=== PATIENT | female | born 1960 | race Caucasian/White ===

== ENCOUNTER → 2016-07-18 | Outpatient (CLI) | payer OTHER ==
[~2016-07-18] MED LIST: HYDC25 PO; LISI40TA PO; METO50TA7 PO
== END | disposition home or self-care (01) ==
LOC: C.PAPS 14:05
PROVIDERS: ATTEND Obstetrics & Gynecology
DX: C55 Malignant neoplasm of uterus, part unspecified (principal); R87.616 Satisfactory cervical smear but lacking transformation zone

== ENCOUNTER → 2016-09-27 | Outpatient (CLI) | payer OTHER ==
[2016-09-27 12:53] LABS: ALT/SGPT 28 U/L (12-78); AST/SGOT 20 U/L (15-37); BLOOD UREA NITROGEN 13 mg/dl (7-18); BUN/CREATININE RATIO 16.2 (10-20); CALCIUM 8.9 mg/dl (8.5-10.1); CARBON DIOXIDE 30 mmol/L (21-32); CHLORIDE 106 mmol/L (98-107); CREATININE 0.82 mg/dl (0.60-1.20); GLUCOSE 121 mg/dl (70-99); POTASSIUM 3.8 mmol/L (3.5-5.1); SODIUM 141 mmol/L (136-145); TRIGLYCERIDES 132 mg/dl (0-150); VERY LOW DENSITY LIPOPROT CALC 26 mg/dl
[2016-09-27 12:54] LABS: ALB/GLOB RATIO 0.9 (0.9-2); ALKALINE PHOSPHATASE 59 U/L (45-117); CHOLESTEROL 130 mg/dl (0-200); CHOLESTEROL/HDL RATIO 3.5; HDL CHOLESTEROL 37 mg/dl; LDL CHOLESTEROL CALCULATED 67 mg/dl
== END | disposition home or self-care (01) ==
LOC: C.LABPVFM 07:40
PROVIDERS: ATTEND Family Medicine
DX: E78.1 Pure hyperglyceridemia (principal); I10 Essential (primary) hypertension; R73.09 Other abnormal glucose

== ENCOUNTER → 2016-11-21 | Outpatient (CLI) | payer OTHER | END | disposition home or self-care (01) | LOC: C.PAPS 12:03 | PROVIDERS: ATTEND Obstetrics & Gynecology | DX: Z12.4 Encounter for screening for malignant neoplasm of cervix (principal); C55 Malignant neoplasm of uterus, part unspecified ==

== ENCOUNTER → 2016-12-26 | Outpatient (CLI) | payer OTHER ==
--- NOTE | 2016-12-26 12:23 | MAMMOGRAPHY REPORT ---
BILATERAL DIGITAL SCREENING MAMMOGRAM WITH CAD: 12/26/2016 CLINICAL HISTORY: Routine screening. Patient has no complaints. TECHNIQUE: Current study was also evaluated with a Computer Aided Detection (CAD) system. Bilateral CC and MLO views were obtained. COMPARISON: Comparison is made to exams dated: 12/21/2015 mammogram, 12/15/2014 mammogram, 12/09/2013 ma mmogram, 12/03/2012 mammogram, 11/28/2011 mammogram, and 11/22/2010 mammogram - [facility]. BREAST COMPOSITION: The tissue of both breasts is almost entirely fatty. FINDINGS: There is a new 8 mm focal asymmetry with associated calcification in the right upper inner quadrant, for which spot compression tomosynthesis views, spot magnification views, and possible jayde ast ultrasound are recommended for further evaluation. The remainder of both breasts are stable compared to prior exams, without suspicious masses, calcific ations, or areas of architectural distortion noted. Other bilateral benign-appearing calcifications are noted, including grouped calcifications in the left lower inner quadrant anteriorly which are con sistent with benign dermal calcifications. IMPRESSION: ACR BI-RADS CATEGORY 0: INCOMPLETE EVALUATION: NEED ADDITIONAL IMAGING EVALUATION Focal asymmetry and associated calcification in the right upper inner quadrant, for which additional imaging evaluation is recommended. The patient will be called to schedule an appointment. Approximately 10% of breast cancers are not detected with mammography. A negative mammographic report should not delay biopsy if a clinically suggestive mass is present. Eugenia Thurman M.D. ah/:12/26/2016 07:51:15 Nurse Obgyn: Carolee LIEBERMAN(Tello)(M), [facility] letter sent: Addl Imaging 0 BI-RADS Code: ACR BI-RADS Category 0: Incomplete Evaluation: Need Additional Imaging Evaluation
== END | disposition home or self-care (01) ==
LOC: C.MAMM 07:32
PROVIDERS: ATTEND Family Medicine
DX: Z12.31 Encounter for screening mammogram for malignant neoplasm of breast (principal)

== ENCOUNTER → 2017-01-02 | Outpatient (CLI) | payer OTHER ==
--- NOTE | 2017-01-02 09:49 | Discharge Instructions ---
Discharge Instructions Procedure Procedure Date: Jan 02, 2017. Reason for visit: Rt Calcs & Asymmetry. Discharge Discharge Date: Jan 02, 2017. Discharge Diagnosis: status post breast biopsy Instructions Activity Recommendations: Additional Limitations (see below) Return to School/Work: no limitations Recommended Home Diet: No Limitations Provider Instructions: ACTIVITY RECOMMENDATIONS: * No lifting, pushing, pulling or exercising the affected side for three days. RETURN TO SCHOOL/WORK: * You may return to work/school after the procedure, but do not perform any strenuous activities for 24 to 48 hours. MEDICATIONS: * Tylenol (two 325 mg) every four to six hours if needed for mild pain (if not allergic to Tylenol). DIET: * Resume previous diet. SPECIAL CARE INSTRUCTIONS: * Keep biopsy site dry for 24 hours. May shower after 24 hours, but do not soak (bathe) incision. * May remove Tegaderm (plastic patch) tomorrow AFTER showering. * Leave the steri-strips on for one week. Allow the steri-strips to fall off by themselves. If not off after one week, you may remove them. You may place a Bandaid crosswise over the strips, if desired. * Apply ice 10 minutes on and 10 minutes off as needed. * Wear a bra at bedtime to sleep more comfortably for 2-3 days. * Your referring physician should have the results after approximately 5 to 7 business days. * Call for unusual bleeding, fever, drainage, etc or if you have any questions call during normal business hours or after hours call Dr Thurman, . FOLLOW UP VISIT: Follow-up with Referring Physician as scheduled. Allergies Coded Allergies: Amlodipine (Verified Adverse Reaction, Mild, edema, 01/10/15) Eduardo Espinoza Recommendations: Call your doctor if: * Temperature above 101 degrees * Pain not relieved by pain medicine ordered * There is increased drainage or redness from any incision * You have any unanswered questions or concerns. Your Doctors Instructions noted above were prepared by provider Eugenia Thurman. Patient Signature Section: Patient Instructions Signature Page Barbara Jerry Patient (or Guardian) Signature/Date: I have read and understand the instructions given to me by my caregivers. Caregiver/RN/Doctor Signature/Date: The above-named patient and/or guardian has received patient instructions on this date. + Original Patient Signature Page (only) stays with chart. Please make copy for patient.
--- NOTE | 2017-01-02 15:18 | MAMMOGRAPHY REPORT ---
ULTRASOUND GUIDED BIOPSY RIGHT BREAST: 01/02/2017 CLINICAL HISTORY: Right 1:00 breast mass. PATIENT CONSENT: The procedure, risks and benefits were discussed with the patient and informed writt en consent was obtained. A timeout was performed immediately prior to the procedure. PROCEDURE DESCRIPTION: With ultrasound guidance, aseptic technique, and lidocaine as the local anesth etic (1% lidocaine to anesthetize the skin and 1% lidocaine with epinephrine to anesthetize the deepe r tissues), the mass of concern in the right 1:00 breast was sampled 4 times with a 14-gauge Achieve biopsy needle. Immediately thereafter, a metallic localizer clip was placed at the biopsy site. Dir ect pressure was applied to the site immediately post procedure and hemostasis was achieved. Postpro cedure unilateral mammograms including right CC and ML tomosynthesis images including C views were ob tained, which shows a new biopsy marker clip at the site of the biopsied mass in the right upper inne r quadrant with no significant postbiopsy hematoma noted. The patient tolerated the procedure withou t complication. She was given wound care instructions. The specimens were sent to pathology for anal ysis. COMPARISON: Comparison is made to exams dated: 01/02/2017 mammogram, 12/26/2016 mammogram, 12/21/2015 lizeth mogram, 12/15/2014 mammogram, 12/09/2013 mammogram, and 12/03/2012 mammogram - [facility]. IMPRESSION: ULTRASOUND GUIDED BIOPSY Ultrasound guided core needle biopsy of the right 1:00 breast mass, with clip placement. The patient will receive pathology results from her referring provider. Eugenia Thurman M.D. /:01/02/2017 09:58:55 Food Porter: Nena LIEBERMAN(R)(M), [facility]
--- NOTE | 2017-01-02 15:20 | MAMMOGRAPHY REPORT ---
UNILATERAL RIGHT DIGITAL DIAGNOSTIC MAMMOGRAM TOMOSYNTHESIS AND TARGETED RIGHT ULTRASOUND: 01/02/2017 CLINICAL HISTORY: 56 year-old woman called back from screening mammography for a new focal asymmetry with associated calcification in the upper inner quadrant of the right breast. TECHNIQUE: Spot magnification right CC, ML and spot compression tomosynthesis right CC and MLO views were obtained. COMPARISON: Comparison is made to exams dated: 12/26/2016 mammogram, 12/21/2015 mammogram, 12/15/2014 lizeth mogram, 12/09/2013 mammogram, 12/03/2012 mammogram, and 11/28/2011 mammogram - [facility]. BREAST COMPOSITION: The tissue of the right breast is almost entirely fatty. FINDINGS: There is persistence of a 5.7 x 3.7 x 5.4 mm focal asymmetry versus mass with single assoc iated punctate microcalcification in the upper inner middle one third of the right breast. The borde rs are indistinct and non-circumscribed. No associated architectural distortion. No other obvious m ass, asymmetry or microcalcifications are identified. Targeted ultrasound was performed in the upper inner quadrant of the right breast. In the 1:00 axis, 7 cm from the nipple, there is an ill-defined hypoechoic mass with echogenic halo measuring approxim ately 6.3 x 6.1 x 4.6 mm, located 5 mm deep to the dermis. This could represent benign fat necrosis, given the superficial location, but the patient denies any known trauma to her right breast. Theref ore, definitive characterization with tissue sampling is recommended to exclude malignancy. Postprocedure right CC and ML tomosynthesis images obtained after ultrasound guided core biopsy in th e right breast were included in this diagnostic jacket in PACS. Please refer to the ultrasound guide d core biopsy report which was performed on the same day for full detail. IMPRESSION: ACR BI-RADS CATEGORY 4B: INTERMEDIATE SUSPICION FOR MALIGNANCY, TARGETED ULTRASOUND ACR BI-RADS CATEGORY 4B: INTERMEDIATE SUSPICION FOR MALIGNANCY 1. Ultrasound guided core biopsy is recommended for a 6 mm non-circumscribed ill-defined hypoechoic mass with echogenic halo in the 1:00 right breast, 7 cm from the nipple, which correlates with a newl y visualized mammographic focal asymmetry. 2. Postprocedure right mammograms obtained after ultrasound guided core biopsy are described under t he ultrasound guided core biopsy report. These results and recommendations were discussed with the patient at the time of the exam. She sched uled the biopsy appointment for the same day. Approximately 10% of breast cancers are not detected with mammography. A negative mammographic report should not delay biopsy if a clinically suggestive mass is present. Daya Zuñiga M.D. ay/:01/02/2017 10:04:41 Literary Writer: Carolee Uriarte, [facility] letter sent: Abnormal 4/5 BI-RADS Code: ACR BI-RADS Category 4B: Intermediate Suspicion For Malignancy Ultrasound BI-RADS: ACR BI-RADS Category 4B: Intermediate Suspicion For Malignancy
== END | disposition home or self-care (01) ==
LOC: C.MAMM 08:54
PROVIDERS: ATTEND Family Medicine
DX: R92.0 Mammographic microcalcification found on diagnostic imaging of breast (principal); N64.89 Other specified disorders of breast

== ENCOUNTER → 2017-05-22 | Outpatient (CLI) | payer OTHER ==
[~2017-05-22] MED LIST changes: -METO50TA7 PO; +METO50TA8 PO
[2017-05-22 13:06] LABS: HEMOGLOBIN A1C 5.9 % (4.5-5.6)
[2017-05-22 14:55] LABS: ALBUMIN 3.7 gm/dl (3.4-5.0); ALT/SGPT 34 U/L (12-78); BLOOD UREA NITROGEN 22 mg/dl (7-18); CARBON DIOXIDE 29 mmol/L (21-32); GLUCOSE 105 mg/dl (70-99); SODIUM 137 mmol/L (136-145)
[2017-05-22 14:59] LABS: ALKALINE PHOSPHATASE 58 U/L (45-117); AST/SGOT 19 U/L (15-37); TOTAL PROTEIN 8.5 gm/dl (6.4-8.2)
== END | disposition home or self-care (01) ==
LOC: C.LABPVFM 09:15
PROVIDERS: ATTEND Family Medicine
DX: I10 Essential (primary) hypertension (principal); R73.09 Other abnormal glucose; R51 Headache; Z13.29 Encounter for screening for other suspected endocrine disorder

== ENCOUNTER → 2017-06-19 | Outpatient (CLI) | payer OTHER ==
[~2017-06-19] MED LIST changes: +METO50TA7 PO; -METO50TA8 PO
== END | disposition home or self-care (01) ==
LOC: C.LABPVFM 08:21
PROVIDERS: ATTEND Family Medicine
DX: R77.1 Abnormality of globulin (principal)

== ENCOUNTER → 2018-01-01 | Outpatient (CLI) | payer OTHER ==
[~2018-01-01] MED LIST changes: -METO50TA7 PO; +METO50TA8 PO
--- NOTE | 2018-01-01 13:50 | MAMMOGRAPHY REPORT ---
BILATERAL DIGITAL SCREENING MAMMOGRAM TOMOSYNTHESIS WITH CAD: 01/01/2018 CLINICAL HISTORY: Routine screening. TECHNIQUE: The study was acquired using full field digital technology and interpreted from soft copy. Breast tomosynthesis in addition to standard 2D mammography was performed. Current study was also ev aluated with a Computer Aided Detection (CAD) system. COMPARISON: Comparison is made to exams dated: 01/02/2017 mammogram, 12/26/2016 mammogram, 12/21/2015 lizeth mogram, 12/15/2014 mammogram, 12/09/2013 mammogram, and 12/03/2012 mammogram - [facility]. BREAST COMPOSITION: The tissue of both breasts is almost entirely fatty. FINDINGS: There are stable grouped calcifications in the anterior left breast. A stable ribbon-shape d biopsy marker clip in the upper inner right breast. No suspicious mass, architectural distortion or cluster of microcalcifications is seen. IMPRESSION: ACR BI-RADS CATEGORY 1: NEGATIVE There is no mammographic evidence of malignancy. A 1 year screening mammogram is recommended.( [id number]) The patient will receive written notification of the results. Some breast cancers are not detected with mammography. A negative mammographic report should not aniya y biopsy if a clinically suggestive mass is present. Daya Zuñiga M.D. ay/:01/01/2018 08:05:26 Passenger Service Representative: RT Osiel(R)(M), [facility] letter sent: Normal 1/2 BI-RADS Code: ACR BI-RADS Category 1: Negative
== END | disposition home or self-care (01) ==
LOC: C.MAMM 07:47
PROVIDERS: ATTEND Family Medicine
DX: Z12.31 Encounter for screening mammogram for malignant neoplasm of breast (principal)